=== PATIENT | female | born 1955 | race Caucasian/White ===

== ENCOUNTER 2016-05-22 16:46 | Observation (INO) | payer MEDICARE, BC ==
[~2016-05-22] VITALS: Ht 160 cm; Wt 102.0 kg
[~2016-05-22 16:46] MED LIST: ABIL15TA2 PO; AMBI10TA PO; CLON1 PO; CYMB60CA PO; HYDR200T42 PO; IMIT50TA PO; LYRI150C PO; SYNT25TA PO
[2016-05-22 16:48] VITALS: BP 134/67; PULSE 84; RESP 18; TEMP 98.1; O2SAT 99
[2016-05-22] MEDS ORDERED: SUCR1TAB PO (17:11)
[2016-05-22] MEDS ORDERED: METH2.5T PO (17:11)
[2016-05-22] MEDS ORDERED: ATEN50TA PO (17:11)
[2016-05-22] MEDS ORDERED: MILN100 PO (17:11)
[2016-05-22] MEDS ORDERED: LEVO.1 PO (17:11)
[2016-05-22] MEDS ORDERED: CLON1TAB PO (17:11)
[2016-05-22] MEDS ORDERED: ESTRGEL PO (17:11)
[2016-05-22] MEDS ORDERED: TRAM50TA PO (17:11)
[2016-05-22] MEDS ORDERED: IMIT50TA PO (17:11)
[2016-05-22] MEDS ORDERED: PROZ20CA11 PO (17:11)
[2016-05-22] MEDS ORDERED: VITA200013 PO (17:11)
[2016-05-22] MEDS ORDERED: AMBI10TA PO (17:11)
[2016-05-22] MEDS ORDERED: RABE1TAB PO (17:11)
[2016-05-22] MEDS ORDERED: PLAQ200T PO (17:11)
[2016-05-22] MEDS ORDERED: ABIL30TA2 PO (17:11)
[2016-05-22] MEDS ORDERED: FOLI5CAP PO (17:11)
[2016-05-22] MEDS ORDERED: NORV2.5T PO (17:11)
[2016-05-22 17:15] VITALS: BP_SYST 149; BP_SYST 154; BP_DIAS 71; BP_DIAS 75; RESP 18; O2SAT 100
--- NOTE | 2016-05-22 17:21 | PD ---
HPI Chief Complaint: Chest Pain Time Seen by Provider: 17:10 Travel History International Travel<30 days: No Contact w/Intl Traveler<30days: No Traveled to known affect area: No History of Present Illness HPI 61yo F with PMH of HTN, RA, fibromyalgia presents to the ED with c/o left sided chest pressure for 45-1 hour prior to arrival. Associated with diaphoresis. Denies any fever, cough, n/v, abdominal pain, numbness or weakness. Pt has been having intermittent episodes of similar chest pressure for 2 weeks but never seek medical attention. Chest pressure was left sided, radiated to left upper back, constant and relived with aspirin and sublingual nitro given by [facility]. Pt is now chest pain free. Denies cig smoking, drug use and never had work up with group fitness instructor before. PFSH Past Medical History Arthritis: Yes (RA) Autoimmune Disease: Yes (LUPUS) Depression: Yes Diminished Hearing: No Fibromyalgia: Yes GERD: Yes Migraines: Yes Thyroid Disease: Yes Past Surgical History Surgical History: No Previous Surgery Hysterectomy: Yes Social History Alcohol Use: No Tobacco Use: No Substance Use: No Allergies-Medications (Allergen,Severity, Reaction): Coded Allergies: Contrast Media (Verified Allergy, Severe, ANAPHYLAXIS, 05/22/16) Hydrocodone (Verified Allergy, Severe, ITCHING, 05/22/16) Reported Meds & Prescriptions Reported Meds & Active Scripts Active Reported Tramadol (Tramadol HCl) 50 Mg Tab 50 Mg PO DAILY PRN Prozac (Fluoxetine HCl) 20 Mg Cap 20 Mg PO DAILY Rabeprazole (Rabeprazole Sodium) 20 Mg Tab 20 Mg PO DAILY Abilify (Aripiprazole) 30 Mg Tab 30 Mg PO DAILY Sucralfate 1 Gm Tab 1 Gm PO TID on empty stomach Vitamin D (Cholecalciferol) 2,000 Unit Cap 2,000 Units PO DAILY [Estrogel] 50 Mg PO DAILY Folic Acid 5 Mg Cap 1 Mg PO DAILY Methotrexate 2.5 Mg Tab 2.5 Mg PO Q7D Atenolol 50 Mg Tab 50 Mg PO DAILY Savella (Milnacipran) 100 Mg Tab 100 Mg PO BID Synthroid (Levothyroxine Sodium) 100 Mcg Tab 100 Mcg PO DAILY Imitrex (Sumatriptan Succinate) 50 Mg Tab 50 Mg PO ONCE PRN If a satisfactory response has not been obtained at 2 hours, a second dose may be administered Plaquenil (Hydroxychloroquine Sulfate) 200 Mg Tab 200 Mg PO BID Take with food Clonazepam 1 Mg Tab 1 Mg PO DAILY Ambien (Zolpidem Tartrate) 10 Mg Tab 10 Mg PO HS PRN Norvasc (Amlodipine Besylate) 2.5 Mg Tab 2.5 Mg PO DAILY Review of Systems Except as stated in HPI: all other systems reviewed are Neg Physical Exam Narrative GENERAL: 61yo F not in distress. SKIN: Warm and dry. HEAD: Atraumatic. Normocephalic. NECK: Trachea midline. No JVD. CARDIOVASCULAR: Regular rate and rhythm. No murmur appreciated. RESPIRATORY: No accessory muscle use. Clear to auscultation. Breath sounds equal bilaterally. GASTROINTESTINAL: Abdomen soft, non-tender, nondistended. Hepatic and splenic margins not palpable. MUSCULOSKELETAL: No obvious deformities. No clubbing. No cyanosis. No edema. NEUROLOGICAL: Awake and alert. No obvious cranial nerve deficits. Motor grossly within normal limits. Normal speech. PSYCHIATRIC: Appropriate mood and affect; insight and judgment normal. Data Data Last Documented VS Vital Signs Date Time Temp Pulse Resp B/P Pulse Ox O2 Delivery O2 Flow Rate FiO2 05/22/16 17:15 100 Nasal Cannula 2 05/22/16 17:15 149/75 154/71 05/22/16 17:15 18 05/22/16 16:48 98.1 84 Orders Basic Metabolic Panel (Bmp) (05/22/16 17:17) Ckmb (Isoenzyme) Profile (05/22/16 17:17) Complete Blood Count With Diff (05/22/16 17:17) Magnesium (Mg) (05/22/16 17:17) Prothrombin Time / Inr (Pt) (05/22/16 17:17) Act Partial Throm Time (Ptt) (05/22/16 17:17) Troponin I (05/22/16 17:17) Chest, Single Ap (05/22/16 17:17) Ecg Monitoring (05/22/16 17:17) Bilateral Bp Monitoring (05/22/16 17:17) Iv Access Insert/Monitor (05/22/16 17:17) Oximetry (05/22/16 17:17) Oxygen Administration (05/22/16 17:17) Sodium Chloride 0.9% Flush (Ns Flush) (05/22/16 17:30) Admit Order (Ed Use Only) (05/22/16 18:56) Sodium Chlor 0.9% 1000 Ml Inj (Ns 1000 M (05/22/16 19:00) Labs Laboratory Tests Test 05/22/16 17:15 White Blood Count 10.3 TH/MM3 Red Blood Count 4.51 MIL/MM3 Hemoglobin 12.9 GM/DL Hematocrit 39.9 % Mean Corpuscular Volume 88.5 FL Mean Corpuscular Hemoglobin 28.7 PG Mean Corpuscular Hemoglobin 32.4 % Concent Red Cell Distribution Width 14.2 % Platelet Count 330 TH/MM3 Mean Platelet Volume 7.9 FL Neutrophils (%) (Auto) 54.3 % Lymphocytes (%) (Auto) 34.2 % Monocytes (%) (Auto) 8.2 % Eosinophils (%) (Auto) 2.9 % Basophils (%) (Auto) 0.4 % Neutrophils # (Auto) 5.6 TH/MM3 Lymphocytes # (Auto) 3.5 TH/MM3 Monocytes # (Auto) 0.8 TH/MM3 Eosinophils # (Auto) 0.3 TH/MM3 Basophils # (Auto) 0.0 TH/MM3 CBC Comment DIFF FINAL Differential Comment Prothrombin Time 9.7 SEC Prothromb Time International 0.9 RATIO Ratio Activated Partial 25.0 SEC Thromboplast Time Sodium Level 137 MEQ/L Potassium Level 3.7 MEQ/L Chloride Level 101 MEQ/L Carbon Dioxide Level 28.9 MEQ/L Anion Gap 7 MEQ/L Blood Urea Nitrogen 20 MG/DL Creatinine 1.04 MG/DL Estimat Glomerular Filtration 54 ML/MIN Rate Random Glucose 104 MG/DL Calcium Level 8.4 MG/DL Magnesium Level 2.1 MG/DL Total Creatine Kinase 86 U/L Troponin I LESS THAN 0.02 NG/ML MDM Medical Decision Making Medical Screen Exam Complete: Yes Emergency Medical Condition: Yes Interpretation(s) Laboratory Tests Test 05/22/16 17:15 White Blood Count 10.3 TH/MM3 (4.0-11.0) Red Blood Count 4.51 MIL/MM3 (4.00-5.30) Hemoglobin 12.9 GM/DL (11.6-15.3) Hematocrit 39.9 % (35.0-46.0) Mean Corpuscular Volume 88.5 FL (80.0-100.0) Mean Corpuscular Hemoglobin 28.7 PG (27.0-34.0) Mean Corpuscular Hemoglobin 32.4 % Concent (32.0-36.0) Red Cell Distribution Width 14.2 % (11.6-17.2) Platelet Count 330 TH/MM3 (150-450) Mean Platelet Volume 7.9 FL (7.0-11.0) Neutrophils (%) (Auto) 54.3 % (16.0-70.0) Lymphocytes (%) (Auto) 34.2 % (9.0-44.0) Monocytes (%) (Auto) 8.2 % (0.0-8.0) Eosinophils (%) (Auto) 2.9 % (0.0-4.0) Basophils (%) (Auto) 0.4 % (0.0-2.0) Neutrophils # (Auto) 5.6 TH/MM3 (1.8-7.7) Lymphocytes # (Auto) 3.5 TH/MM3 (1.0-4.8) Monocytes # (Auto) 0.8 TH/MM3 (0-0.9) Eosinophils # (Auto) 0.3 TH/MM3 (0-0.4) Basophils # (Auto) 0.0 TH/MM3 (0-0.2) CBC Comment DIFF FINAL Differential Comment Prothrombin Time 9.7 SEC (9.8-11.6) Prothromb Time International 0.9 RATIO Ratio Activated Partial 25.0 SEC Thromboplast Time (24.3-30.1) Sodium Level 137 MEQ/L (136-145) Potassium Level 3.7 MEQ/L (3.5-5.1) Chloride Level 101 MEQ/L (98-107) Carbon Dioxide Level 28.9 MEQ/L (21.0-32.0) Anion Gap 7 MEQ/L (5-15) Blood Urea Nitrogen 20 MG/DL (7-18) Creatinine 1.04 MG/DL (0.50-1.00) Estimat Glomerular Filtration 54 ML/MIN (>89) Rate Random Glucose 104 MG/DL (74-106) Calcium Level 8.4 MG/DL (8.5-10.1) Magnesium Level 2.1 MG/DL (1.5-2.5) Total Creatine Kinase 86 U/L (26-192) Troponin I LESS THAN 0.02 NG/ML (0.02-0.05) Last Impressions Chest X-Ray 05/22/16 [id number] Signed Impressions: Service Date/Time: Sunday, May 22, 2016 17:36 - CONCLUSION: No evidence of acute cardiopulmonary disease. Colt Rodriges MD EKG: NSR 86bpm. Normal axis. Mild ST depression V2-V6. No prior to compare. QTc 398ms. Differential Diagnosis ACS vs. musculoskeletal pain vs. GERD vs. costochondritis Narrative Course 61yo F with atypical chest pain that started about an hour ago. Pt has had intermittent similar chest pain for 2 weeks but has not been evaluated for this. Labs reviewed, no leukocytosis. Troponin negative. BUN/creatinine mildly elevated at 20/1.04. Pt given NS IVF. CXR negative for acute cardiopulmonary disease. Pt has been chest pain free since aspirin and nitro given by [facility]. EKG showed nonspecific mild ST depression. No prior to compare. Will admit pt to chest pain center for serial EKG and cardiac enzyme. Pt agrees with plan. I was informed that pt changed her mind after and signed out against medical advice. The risks of leaving against medical advice without further evaluation treatment were discussed with the patient. These risks include cardiac dysfunction, cardiac dysrhythmia, possible heart attack, possible stroke or . The patient indicated understanding of these risks and appeared to have the capacity to make this decision. Diagnosis Primary Impression: Chest pain Qualified Code: R07.9 - Chest pain, unspecified type Admitting Information Admitting Physician Requests: Observation Patient Instructions: General Instructions Departure Forms: Tests/Procedures Additional Instructions: Please return to the ED if you change or mind or have worsening symptoms. Med/Other Pt SpecificInfo: No Change to Meds Disposition: 07 AGAINST MEDICAL ADVICE Condition: Stable Ching Lockhart DO May 22, 2016 17:21
[2016-05-22] MEDS ORDERED: SODIUM CHLORIDE 0.9% FLUSH 5 ML FLUSH IVF PRN (17:30)
--- NOTE | 2016-05-22 17:45 | RADRPT ---
EXAM DATE/TIME: 05/22/2016 17:36 [facility] COMPARISON: No previous studies available for comparison. INDICATIONS : Chest pain. MEDICAL HISTORY : Hypertension. Asthma. SURGICAL HISTORY : None. ENCOUNTER: Initial ACUITY: 2 weeks PAIN SCORE: 5/10 LOCATION: Bilateral chest FINDINGS: A single view of the chest demonstrates the lungs to be symmetrically aerated without evidence of mas s, infiltrate or effusion. The cardiomediastinal contours are unremarkable. Osseous structures are intact. CONCLUSION: No evidence of acute cardiopulmonary disease. Colt Rodriges MD on May 22, 2016 at 17:43 Board Certified Radiologist. This report was verified electronically.
[2016-05-22 17:47] LABS: AUTOMATED NEUTROPHIL # 5.6 TH/MM3 (1.8-7.7); BASOPHIL % 0.4 % (0.0-2.0); EOSINOPHIL # 0.3 TH/MM3 (0-0.4); EOSINOPHIL % 2.9 % (0.0-4.0); HEMATOCRIT 39.9 % (35.0-46.0); HEMO FLAGS DIFF FINAL; LYMPH % 34.2 % (9.0-44.0); LYMPHOCYTE # 3.5 TH/MM3 (1.0-4.8); MEAN CELL VOLUME 88.5 FL (80.0-100.0); MEAN CORPUSCULAR HEMOGLOBIN 28.7 PG (27.0-34.0); MEAN CORPUSCULAR HGB CONC 32.4 % (32.0-36.0); MONO % 8.2 % (0.0-8.0); NEUT % 54.3 % (16.0-70.0); PLATELET COUNT 330 TH/MM3 (150-450); RED BLOOD COUNT 4.51 MIL/MM3 (4.00-5.30); RED CELL DISTRIBUTION WIDTH 14.2 % (11.6-17.2); WHITE BLOOD COUNT 10.3 TH/MM3 (4.0-11.0)
[2016-05-22 18:02] LABS: INTERNATIONAL NORMALIZED RATIO 0.9 RATIO; PROTHROMBIN TIME - PATIENT 9.7 SEC (9.8-11.6)
[2016-05-22 18:21] LABS: ANION GAP 7 MEQ/L (5-15); BICARBONATE 28.9 MEQ/L (21.0-32.0); BLOOD UREA NITROGEN 20 MG/DL (7-18); CHLORIDE 101 MEQ/L (98-107); GLOMERULAR FILTRATION RATE 54 ML/MIN (>89); MAGNESIUM 2.1 MG/DL (1.5-2.5); POTASSIUM 3.7 MEQ/L (3.5-5.1); SODIUM (NA) 137 MEQ/L (136-145)
[2016-05-22 18:32] LABS: CREATINE KINASE 86 U/L (26-192)
[2016-05-22] MEDS ORDERED: SODIUM CHLOR 0.9% 1000 ML INJ 1,000 ML IV ONE (19:00)
[2016-05-22 19:15] VITALS: BP 131/63
--- NOTE | 2016-05-23 09:08 | EKG ---
Date Performed: 05/22/2016 Time Performed: 17:06:44 PTAGE: 61 years EKG: Sinus rhythm NONSPECIFIC ST & T-WAVE ABNORMALITY BORDERLINE ECG Since PREVIOUS TRACING , no significant change noted DOCTOR: Angelita Vail Interpretating Date/Time 05/23/2016 09:07:41
== END 2016-05-22 20:25 | disposition left against medical advice (07) ==
LOC: NEPA 16:46 → NEDA 18:58
PROVIDERS: ADMIT Internal Medicine Cardiovascular Disease; ATTEND Internal Medicine Cardiovascular Disease
DX: R07.9 Chest pain, unspecified (principal); M79.7 Fibromyalgia; I10 Essential (primary) hypertension; R61 Generalized hyperhidrosis; K21.9 Gastro-esophageal reflux disease without esophagitis; E07.9 Disorder of thyroid, unspecified; Z79.899 Other long term (current) drug therapy; R94.31 Abnormal electrocardiogram [ECG] [EKG]
CPT/HCPCS: 71010; 80048; 82550; 83735; 84484; 85025; 85610; 85730; 93005

== ENCOUNTER 2017-03-17 17:31 | Emergency (ER) | payer MEDICARE, BC ==
[~2017-03-17] VITALS: Ht 160 cm; Wt 106.7 kg
[~2017-03-17 17:31] MED LIST changes: -ABIL15TA2 PO; +ABIL30TA2 PO; +ATEN50TA PO; -CLON1 PO; +CLON1TAB PO; -CYMB60CA PO; +ESTRGEL PO; +FOLI5CAP PO; -HYDR200T42 PO; +LEVO.1 PO; -LYRI150C PO; +METH2.5T PO; +MILN100 PO; +NORV2.5T PO; +PLAQ200T PO; +PROZ20CA11 PO; +RABE1TAB PO; +SUCR1TAB PO; -SYNT25TA PO; +TRAM50TA PO; +VITA200013 PO
[2017-03-17 17:37] VITALS: BP 134/91; PULSE 113; RESP 18; TEMP 97.6; O2SAT 96
[2017-03-17] MEDS ORDERED: oxyCODONE/ACETAMINOPHEN 5 MG/325 MG TAB PO ONE (18:00)
--- NOTE | 2017-03-17 18:14 | PD ---
HPI Chief Complaint: Bleeding Time Seen by Provider: 17:44 Travel History International Travel<30 days: No Contact w/Intl Traveler<30days: No Traveled to known affect area: No History of Present Illness HPI The patient is a 62-year-old female who presents to the emergency department for rectal bleeding. The patient has a history of an external hemorrhoid, states it recently thrombosed was a size of her thumb. The patient states that the hemorrhoid thrombosed and then released, expelling several clots. The patient states her pain was improved, however, she then had same rectal bleeding which she describes as dark to bright red blood, on the toilet paper as well as on the stool. She now notes the hemorrhoid once again has enlarged and is the size of her thumb with some discomfort. The patient has an appointment with the colorectal surgeon, Dr. Jamila Oshea, on Sunday morning. The patient denies any history of previous GI bleeding or coagulopathy. The patient denies taking any anticoagulants. Symptoms are mild to moderate, exacerbated after her hemorrhoid started bleeding, and there are no current alleviating factors. PFSH Past Medical History Arthritis: Yes (RA) Autoimmune Disease: Yes (LUPUS) Depression: Yes Diminished Hearing: No Fibromyalgia: Yes GERD: Yes Migraines: Yes Thyroid Disease: Yes Past Surgical History Hysterectomy: Yes Social History Alcohol Use: No Tobacco Use: No Substance Use: No Allergies-Medications (Allergen,Severity, Reaction): Coded Allergies: diatrizoate meglumine (Unverified Allergy, Severe, ANAPHYLAXIS, 03/17/17) gadobenic acid (Unverified Allergy, Severe, ANAPHYLAXIS, 03/17/17) gadodiamide (Unverified Allergy, Severe, ANAPHYLAXIS, 03/17/17) gadoteridol (Unverified Allergy, Severe, ANAPHYLAXIS, 03/17/17) hydrocodone (Unverified Allergy, Severe, ITCHING, 03/17/17) iodixanol (Unverified Allergy, Severe, ANAPHYLAXIS, 03/17/17) iohexol (Unverified Allergy, Severe, ANAPHYLAXIS, 03/17/17) Reported Meds & Prescriptions Reported Meds & Active Scripts Active Percocet (Oxycodone-Acetaminophen) 5-325 mg Tab 1 Tab PO Q6H PRN Reported Ranitidine (Ranitidine HCl) 300 Mg Tab 300 Mg PO HS Tramadol (Tramadol HCl) 50 Mg Tab 50 Mg PO DAILY PRN Prozac (Fluoxetine HCl) 20 Mg Cap 20 Mg PO DAILY Abilify (Aripiprazole) 30 Mg Tab 30 Mg PO DAILY Sucralfate 1 Gm Tab 1 Gm PO TID on empty stomach Vitamin D (Cholecalciferol) 2,000 Unit Cap 2,000 Units PO DAILY [Estrogel] 50 Mg PO DAILY Methotrexate 2.5 Mg Tab 2.5 Mg PO Q7D Atenolol 50 Mg Tab 50 Mg PO DAILY Savella (Milnacipran) 100 Mg Tab 100 Mg PO BID Synthroid (Levothyroxine Sodium) 100 Mcg Tab 100 Mcg PO DAILY Imitrex (Sumatriptan Succinate) 50 Mg Tab 50 Mg PO ONCE PRN If a satisfactory response has not been obtained at 2 hours, a second dose may be administered Plaquenil (Hydroxychloroquine Sulfate) 200 Mg Tab 200 Mg PO BID Take with food Clonazepam 1 Mg Tab 1 Mg PO DAILY Ambien (Zolpidem Tartrate) 10 Mg Tab 10 Mg PO HS PRN Norvasc (Amlodipine Besylate) 2.5 Mg Tab 2.5 Mg PO DAILY Review of Systems Except as stated in HPI: all other systems reviewed are Neg General / Constitutional: No: Fever HENT: No: Lightheadedness Cardiovascular: No: Chest Pain or Discomfort Respiratory: No: Shortness of Breath Gastrointestinal: Positive: Hematochezia, Other (as noted per history of present illness), No: Nausea, Vomiting, Abdominal Pain Genitourinary: No: Hematuria Physical Exam Narrative GENERAL: Awake, alert, nontoxic-appearing 8-year-old female who appears her stated age and is in no acute respiratory distress. SKIN: Focused skin assessment warm/dry. HEAD: Atraumatic. Normocephalic. EYES: No scleral icterus. ENT: No nasal bleeding or discharge. Mucous membranes pink and moist. NECK: Trachea midline. No JVD. CARDIOVASCULAR: Regular, tachycardic with a heart rate of 100. RESPIRATORY: No accessory muscle use. Clear to auscultation. Breath sounds equal bilaterally. GASTROINTESTINAL: Abdomen soft, non-tender, nondistended. No rebound tenderness. Rectal: The exam was performed in the presence of a female nurse. The patient has an obvious external hemorrhoid with thrombosis present. The hemorrhoid also has a few open areas of the medial aspect with a few clots visible and some small dark venous oozing noted. MUSCULOSKELETAL: No obvious deformities. No clubbing. No cyanosis. No edema. NEUROLOGICAL: Awake and alert. No obvious cranial nerve deficits. Motor grossly within normal limits. Normal speech. PSYCHIATRIC: Appropriate mood and affect; insight and judgment normal. Data Data Last Documented VS Vital Signs Date Time Temp Pulse Resp B/P (MAP) Pulse Ox O2 Delivery O2 Flow Rate FiO2 03/17/17 19:33 80 16 154/76 (102) 96 03/17/17 17:37 97.6 Orders Orders Complete Blood Count With Diff (03/17/17 17:54) Oxycodone-Acetamin 5-325 Mg (Percocet (03/17/17 18:00) Ed Discharge Order (03/17/17 19:18) Labs Laboratory Tests Test 03/17/17 19:00 White Blood Count 9.9 TH/MM3 Red Blood Count 4.32 MIL/MM3 Hemoglobin 11.8 GM/DL Hematocrit 37.2 % Mean Corpuscular Volume 86.3 FL Mean Corpuscular Hemoglobin 27.4 PG Mean Corpuscular Hemoglobin Concent 31.8 % Red Cell Distribution Width 15.3 % Platelet Count 316 TH/MM3 Mean Platelet Volume 7.9 FL Neutrophils (%) (Auto) 69.3 % Lymphocytes (%) (Auto) 22.1 % Monocytes (%) (Auto) 6.8 % Eosinophils (%) (Auto) 1.0 % Basophils (%) (Auto) 0.8 % Neutrophils # (Auto) 6.8 TH/MM3 Lymphocytes # (Auto) 2.2 TH/MM3 Monocytes # (Auto) 0.7 TH/MM3 Eosinophils # (Auto) 0.1 TH/MM3 Basophils # (Auto) 0.1 TH/MM3 CBC Comment DIFF FINAL Differential Comment MDM Medical Decision Making Medical Screen Exam Complete: Yes Emergency Medical Condition: Yes Medical Record Reviewed: Yes Interpretation(s) Laboratory Tests Test 03/17/17 19:00 White Blood Count 9.9 TH/MM3 Red Blood Count 4.32 MIL/MM3 Hemoglobin 11.8 GM/DL Hematocrit 37.2 % Mean Corpuscular Volume 86.3 FL Mean Corpuscular Hemoglobin 27.4 PG Mean Corpuscular Hemoglobin Concent 31.8 % Red Cell Distribution Width 15.3 % Platelet Count 316 TH/MM3 Mean Platelet Volume 7.9 FL Neutrophils (%) (Auto) 69.3 % Lymphocytes (%) (Auto) 22.1 % Monocytes (%) (Auto) 6.8 % Eosinophils (%) (Auto) 1.0 % Basophils (%) (Auto) 0.8 % Neutrophils # (Auto) 6.8 TH/MM3 Lymphocytes # (Auto) 2.2 TH/MM3 Monocytes # (Auto) 0.7 TH/MM3 Eosinophils # (Auto) 0.1 TH/MM3 Basophils # (Auto) 0.1 TH/MM3 CBC Comment DIFF FINAL Differential Comment Differential Diagnosis Differential diagnosis includes external hemorrhoid bleeding, internal hemorrhoid, diverticulosis, anal fissure, upper GI bleed, AV malformation, symptomatic anemia, coagulopathy. Narrative Course Physical examination reveals a thrombosed hemorrhoid which is already bleeding over the medial aspect with diffuse visible small clots and a small amount of dark venous oozing. However, the patient does appear in discomfort with a heart rate near 100, not unsure if the heart rate is elevated secondary to symptomatic anemia versus pain. The patient has an allergy to hydrocodone with itching, therefore, was administered Percocet in the emergency department for pain and CBC was sent to lab. Patient was signed out to the oncoming physician with CBC pending. If hemoglobin is greater than 8.0, patient to follow-up on an outpatient basis with the colorectal surgeon. Hemoglobin was 11.8, patient will follow up outpatient with colorectal surgery as scheduled on Sunday. Diagnosis Primary Impression: Bleeding external hemorrhoids Patient Instructions: General Instructions Additional Instructions: Follow-up with Dr. Jamila Oshea as directed on Sunday. Pain medication as directed. Return if symptoms worsen or progress. Med/Other Pt SpecificInfo: Prescription(s) given Scripts Oxycodone-Acetaminophen (Percocet) 5-325 mg Tab 1 TAB PO Q6H Y for PAIN, #15 TAB 0 Refills Prov: Vinny Gordon MD 03/17/17 Disposition: 01 DISCHARGE HOME Condition: Stable Vinny Gordon MD Mar 17, 2017 18:14
[2017-03-17] MEDS ORDERED: RANI300T PO (18:19)
[2017-03-17] MEDS ORDERED: PERC5TAB12 PO (18:48)
[2017-03-17 19:09] LABS: AUTOMATED NEUTROPHIL # 6.8 TH/MM3 (1.8-7.7); BASOPHIL # 0.1 TH/MM3 (0-0.2); BASOPHIL % 0.8 % (0.0-2.0); EOSINOPHIL # 0.1 TH/MM3 (0-0.4); HEMATOCRIT 37.2 % (35.0-46.0); HEMOGLOBIN 11.8 GM/DL (11.6-15.3); LYMPH % 22.1 % (9.0-44.0); LYMPHOCYTE # 2.2 TH/MM3 (1.0-4.8); MEAN CELL VOLUME 86.3 FL (80.0-100.0); MEAN CORPUSCULAR HEMOGLOBIN 27.4 PG (27.0-34.0); MEAN CORPUSCULAR HGB CONC 31.8 % (32.0-36.0); MEAN PLATELET VOLUME 7.9 FL (7.0-11.0); MONO % 6.8 % (0.0-8.0); MONOCYTE # 0.7 TH/MM3 (0-0.9); NEUT % 69.3 % (16.0-70.0); PLATELET COUNT 316 TH/MM3 (150-450); RED BLOOD COUNT 4.32 MIL/MM3 (4.00-5.30); RED CELL DISTRIBUTION WIDTH 15.3 % (11.6-17.2); WHITE BLOOD COUNT 9.9 TH/MM3 (4.0-11.0)
[2017-03-17 19:33] VITALS: BP 154/76
== END 2017-03-17 19:40 | disposition home or self-care (01) ==
LOC: PHED 17:31
DX: K64.4 Residual hemorrhoidal skin tags (principal); M06.9 Rheumatoid arthritis, unspecified; M32.9 Systemic lupus erythematosus, unspecified; M79.7 Fibromyalgia; F32.9 Major depressive disorder, single episode, unspecified; K21.9 Gastro-esophageal reflux disease without esophagitis; E07.9 Disorder of thyroid, unspecified; Z79.899 Other long term (current) drug therapy; Z88.8 Allergy status to other drugs, medicaments and biological substances
CPT/HCPCS: 85025; 99283